=== PATIENT | male | born 1950 | race Caucasian/White ===

== ENCOUNTER 2023-02-22 04:40 | Day surgery (SDC) | payer OTHER ==
[2023-02-18 13:39] VITALS: BMI 45.1
[2023-02-22 09:12] VITALS: TEMP 98
[2023-02-22 09:56] VITALS: BP 131/66; PULSE 50; RESP 22
== END 2023-02-22 09:44 | disposition home or self-care (01) ==
LOC: JASU-ENDO 04:40
PROVIDERS: ATTEND Internal Medicine Gastroenterology
PROC: 3E0H8GC Introduction of Other Therapeutic Substance into Lower GI, Via Natural or Artificial Opening Endoscopic (ICD-10-PCS; 2023-02-22)
PROC: 0DBH8ZX Excision of Cecum, Via Natural or Artificial Opening Endoscopic, Diagnostic (ICD-10-PCS; principal; 2023-02-22 08:00)
DX: D12.0 Benign neoplasm of cecum (principal); K57.30 Diverticulosis of large intestine without perforation or abscess without bleeding; K64.8 Other hemorrhoids; I10 Essential (primary) hypertension
CPT/HCPCS: 88305-TC